=== PATIENT | male | born 1945 | race Two or more races ===

== ENCOUNTER 2021-08-08 08:21 | Outpatient (CLI) | payer MEDICARE, SELFPAY ==
[2021-08-08 08:49] LABS: Potassium 4.3 mmol/L (3.4-5.0)
[2021-08-08 08:58] LABS: Alanine Aminotransferase 32 U/L (4-50); Albumin Level 4.5 g/dL (3.5-5.1); Alkaline Phosphatase 76 U/L (38-126); Anion Gap 4 mmol/L (8-16); Aspartate Amino Transferase 35 U/L (17-59); Bilirubin,Total 0.5 mg/dL (0.2-1.3); Blood Urea Nitrogen 18 mg/dL (9-20); Calcium 9.5 mg/dL (8.4-10.2); Carbon Dioxide 27 mmol/L (22-30); Chloride 107 mmol/L (98-107); Cholesterol 182 mg/dL (0-200); Estimated Glomerular Filt Rate > 60; Glucose 116 mg/dL (65-110); HDL Direct 51 mg/dL; Sodium 138 mmol/L (137-145); Triglycerides 112 mg/dL (<150)
[2021-08-08 09:01] LABS: LDL Cholesterol Direct 95 mg/dL
[2021-08-08 09:20] LABS: Basophils Absolute Auto 0.1 K/mm3 (0.0-0.1); Eosinophils Absolute Auto 0.3 K/mm3 (0-0.3); Eosinophils Percent Auto 4.6 % (0-4.4); Hematocrit 40.4 % (42.0-52.0); Hemoglobin 13.6 g/dL (14.0-18.0); Immature Granulocyte Absolute 0.02 K/mm3 (0.00-0.031); Immature Granulocyte Percent A 0.3 % (0-0.5); Lymphocytes Absolute Auto 2.09 K/mm3 (0.9-3.2); Lymphocytes Percent Auto 34.4 % (18.3-44.2); Mean Corpuscular HGB Conc 33.7 g/dl (32-36); Mean Corpuscular Hemoglobin 30.9 pg (26-34); Mean Corpuscular Volume 91.8 fl (80-100); Monocytes Absolute Auto 0.6 K/mm3 (0.1-0.6); Monocytes Percent Auto 9.7 % (2.6-8.5); Platelet Count Result 231 k/mm3 (150-375); Red Cell Distribution Width 13.1 % (11.5-14.5); White Blood Count 6.1 K/mm3 (4.5-10.0)
[2021-08-08 09:39] LABS: Hemoglobin A1C 5.6 % (<5.7)
[2021-08-08 10:05] LABS: Thyroid Stimulating Hormone Reflex 0.256 uIU/mL (0.465-4.68)
[2021-08-08 10:32] LABS: Free T4 Free Thyroxine Reflex 1.37 ng/dL (0.78-2.19)
[2021-08-08 12:25] LABS: Total Triiodothyronine (T3) 1.09 NG/ML (0.97-1.69)
== END 2021-08-08 08:22 | disposition home or self-care (01) ==
PROVIDERS: PCP Family Medicine; Visit Provider Physician Assistant Medical
DX: E03.9 Hypothyroidism, unspecified (principal); E78.5 Hyperlipidemia, unspecified; E66.3 Overweight; I10 Essential (primary) hypertension
CPT/HCPCS: 36415; 80053; 80061; 83036; 84439; 84443; 84480; 85025

== ENCOUNTER 2021-10-03 09:18 | Outpatient (CLI) | payer MEDICARE, SELFPAY ==
[2021-10-03 11:03] LABS: Reticulocyte Hemoglobin Conten 34.4 pg (28.2-35.7); Reticulocyte Percent 1.94 % (0.7-4.3); Reticulocytes Absolute 0.08 B/L (32.2-175.7)
== END 2021-10-03 09:19 | disposition home or self-care (01) ==
PROVIDERS: PCP Family Medicine; Visit Provider Physician Assistant Medical
DX: D64.9 Anemia, unspecified (principal)
CPT/HCPCS: 36415; 82607; 82746; 85046

== ENCOUNTER 2022-09-07 08:10 | Outpatient (CLI) | payer MEDICARE, SELFPAY ==
[2022-09-07 08:55] LABS: Basophils Percent Auto 0.7 % (0.2-1.2); Eosinophils Absolute Auto 0.2 K/mm3 (0-0.3); Eosinophils Percent Auto 4.3 % (0-4.4); Hematocrit 39.6 % (42.0-52.0); Hemoglobin 13.4 g/dL (14.0-18.0); Immature Granulocyte Absolute 0.03 K/mm3 (0.00-0.031); Immature Granulocyte Percent A 0.5 % (0-0.5); Lymphocytes Absolute Auto 1.73 K/mm3 (0.9-3.2); Mean Corpuscular HGB Conc 33.8 g/dl (32-36); Mean Corpuscular Hemoglobin 30.5 pg (26-34); Mean Corpuscular Volume 90.2 fl (80-100); Mean Platelet Volume 10.1 fl (7.4-10.4); Monocytes Absolute Auto 0.7 K/mm3 (0.1-0.6); Monocytes Percent Auto 11.6 % (2.6-8.5); Neutrophils Absolute Auto 2.9 K/mm3 (1.3-6.7); Neutrophils Percent Auto 51.9 % (45.5-73.1); Platelet Count Result 207 k/mm3 (150-375); Red Blood Count 4.39 M/mm3 (4.6-6.20); Red Cell Distribution Width 13.2 % (11.5-14.5); White Blood Count 5.6 K/mm3 (4.5-10.0)
[2022-09-07 09:16] LABS: Cholesterol 169 mg/dL (0-200); HDL Direct 48 mg/dL; Triglycerides 109 mg/dL (<150)
[2022-09-07 09:27] LABS: LDL Cholesterol Direct 88 mg/dL
[2022-09-07 09:43] LABS: Prostate Specific Antigen 2.8 ng/mL (< OR = 4.0); Thyroid Stimulating Hormone 0.395 uIU/mL (0.465-4.680)
== END 2022-09-07 08:11 | disposition home or self-care (01) ==
LOC: ANHLAB 08:12
PROVIDERS: PCP Family Medicine; Visit Provider Family Medicine
DX: Z12.5 Encounter for screening for malignant neoplasm of prostate (principal); R73.9 Hyperglycemia, unspecified; I10 Essential (primary) hypertension; E78.2 Mixed hyperlipidemia; E03.9 Hypothyroidism, unspecified; E53.8 Deficiency of other specified B group vitamins
CPT/HCPCS: 36415; 80061; 82607; 84153; 84443; 85025; G0103

== ENCOUNTER 2023-10-26 07:18 | Outpatient (CLI) | payer MEDICARE, SELFPAY ==
[2023-10-26 08:11] LABS: Basophils Absolute Auto 0.1 K/mm3 (0.0-0.1); Basophils Percent Auto 1.1 % (0.2-1.2); Eosinophils Absolute Auto 0.3 K/mm3 (0-0.3); Eosinophils Percent Auto 5.3 % (0-4.4); Hematocrit 41.7 % (42.0-52.0); Hemoglobin 13.8 g/dL (14.0-18.0); Immature Granulocyte Absolute 0.02 K/mm3 (0.00-0.031); Immature Granulocyte Percent A 0.4 % (0-0.5); Lymphocytes Absolute Auto 1.68 K/mm3 (0.9-3.2); Lymphocytes Percent Auto 30.7 % (18.3-44.2); Mean Corpuscular HGB Conc 33.1 g/dl (32-36); Mean Corpuscular Hemoglobin 30.4 pg (26-34); Mean Corpuscular Volume 91.9 fl (80-100); Mean Platelet Volume 10.2 fl (7.4-10.4); Monocytes Absolute Auto 0.6 K/mm3 (0.1-0.6); Monocytes Percent Auto 10.6 % (2.6-8.5); Neutrophils Absolute Auto 2.8 K/mm3 (1.3-6.7); Neutrophils Percent Auto 51.9 % (45.5-73.1); Platelet Count Result 214 k/mm3 (150-375); Red Blood Count 4.54 M/mm3 (4.6-6.20); Red Cell Distribution Width 13.3 % (11.5-14.5); White Blood Count 5.5 K/mm3 (4.5-10.0)
[2023-10-26 08:15] LABS: Alanine Aminotransferase 32 U/L (6-50); Albumin Level 4.6 g/dL (3.5-5.1); Alkaline Phosphatase 84 U/L (38-126); Anion Gap 7 mmol/L (4-12); Aspartate Amino Transferase 32 U/L (17-59); Bilirubin,Total 0.6 mg/dL (0.2-1.3); Blood Urea Nitrogen 15 mg/dL (9-20); Calcium 9.7 mg/dL (8.4-10.2); Carbon Dioxide 26 mmol/L (22-30); Chloride 107 mmol/L (98-107); Cholesterol 171 mg/dL (0-200); Estimated Glomerular Filt Rate > 60; Glucose 114 mg/dL (65-110); HDL Direct 52 mg/dL; Potassium 4.3 mmol/L (3.4-5.0); Sodium 140 mmol/L (137-145); Triglycerides 159 mg/dL (<150)
[2023-10-26 08:26] LABS: LDL Cholesterol Direct 89 mg/dL
[2023-10-26 08:31] LABS: Hemoglobin A1C 5.6 % (<5.7)
[2023-10-26 08:44] LABS: Prostate Specific Antigen 3.5 ng/mL (< OR = 4.0)
[2023-10-26 09:20] LABS: Folic Acid 7.8 ng/mL (2.76->20)
== END 2023-10-26 07:19 | disposition home or self-care (01) ==
PROVIDERS: PCP Family Medicine
DX: D51.8 Other vitamin B12 deficiency anemias (principal); I10 Essential (primary) hypertension; Z12.5 Encounter for screening for malignant neoplasm of prostate; E78.5 Hyperlipidemia, unspecified; R73.03 Prediabetes
CPT/HCPCS: 36415; 80053; 80061; 82607; 82746; 83036; 84153; 84443; 85025; G0103

== ENCOUNTER 2023-12-01 06:34 | Day surgery (SDC) | payer MEDICARE, SELFPAY ==
[2023-11-22 15:01] VITALS: BMI 27.9
[2023-12-01 07:23] VITALS: BMI 27.2
[2023-12-01] MEDS: LACTATED RINGERS 1,000 ML 150 ML IV CONT (07:57)
--- NOTE | 2023-12-01 07:57 | WPDANESEPPF ---
Anes - Initial Pre Proc Eval Procedure: Operation Date: 12/01/23 08:30 Proposed Procedures p Esophagogastroduodenoscopy - Jorge Hancock MD s Diagnostic Colonoscopy - Jorge Hancock MD Date/Time: 12/01/23 07:57 Surgeon: Jorge Hancock MD Pre Op Diagnosis: Gerd, History of Colon Polyps Patient Data Age: 78 Gender: M Height: 1.68 m Weight: 76.65 kg Allergies Allergy/AdvReac Type Severity Reaction Status Date / Time No Known Allergies Allergy Verified 12/01/23 07:21 Home Medications Medication Instructions Recorded Confirmed Type levothyroxine 100 mcg tablet 100 mcg PO DAILY #90 tabs 04/19/23 12/01/23 Rx lisinopril 10 mg tablet 10 mg PO DAILY #90 tabs 04/19/23 12/01/23 Rx rosuvastatin 10 mg tablet 10 mg PO DAILY #90 tabs 04/19/23 12/01/23 Rx omeprazole 40 mg capsule,delayed 40 mg PO BID #180 caps 08/08/23 12/01/23 Rx release Patient hx anesthesia problems: none Family hx anesthesia problems: none Results Review: All pre-operative results and documents have been reviewed as part of the pre-operative evaluation. FOR[facility]LY [facility] Past Medical History Medical History Benign tubular adenoma of large intestine Cataract bilateral Surgical History Surgical History History of colonoscopy (~07/10/18) [place] History of ear surgery stapedectomy Social History Social History Smoking status: Never smoker Alcohol intake: current Drinks per week: 4 Substance use: never Substance use type: does not use Lack of Transportation: No Lack of Food: Never True Current Housing: I Have Housing Concerned About Future Housing: No Difficulty Paying Gas/Electric Bills: No Difficulty Paying for Meds: No Currently Unemployed: No Education: Master's Degree or Higher Difficulty w/ Childcare or Family Care: No Living arrangements: with family Anes - Eval Final PreProcedure Day of Procedure 12/01/23 07:57 Patient weight: overweight Heart: regular rate and rhythm Lungs: clear to auscultation Airway: Mallampati scale class III Neurological: alert and oriented Last oral intake: >/= 8 hours ASA classification: III Emergent: no Anesthetic plan: proceed Anesthesia type and monitoring: general GIVS and standard monitoring Results Review: All pre-operative results and documents have been reviewed as part of the pre-operative evaluation. Informed Consent: The patient's anesthetic plan and its attendant risks and benefits were discussed with the patient/family/POA. Questions were solicited and answers provided to the satisfaction of the patient/family/POA.
[2023-12-01 08:04] VITALS: BP 132/93; PULSE 77; RESP 18; TEMP 37.1; O2SAT 98
--- NOTE | 2023-12-01 08:27 | PM.HPGS ---
History of Present Illness History of Present Illness Consent: Risks, benefits, and alternatives have been discussed and questions answered. Patient agrees to proceed with procedure. Chief complaint: Gerd, History of Colon Polyps Narrative: Jason Rodgers is a 78 year old male presents for both colonoscopy and EGD. Patient has a history of adenomatous colon polyps. Previously followed by Dr. Page. He has had colon polyps on several previous occasions. Most recently 2019. Patient has does report occasional bright red blood per rectum. He denies abdominal pain at present. Desires therapy for this. He has had bleeding at least on a weekly basis. Additionally sever his with acid reflux and heartburn. Currently maintained on omeprazole 40mg p.o. daily. He continues to have breakthrough regurgitation. Review of Systems Review of Systems: All systems reviewed & are unremarkable except as noted in HPI and below PMFSH Past Medical History Medical History Benign tubular adenoma of large intestine Cataract bilateral Surgical History Surgical History History of colonoscopy (~07/10/18) [place] History of ear surgery stapedectomy Social History Social History Smoking status: Never smoker Alcohol intake: current Drinks per week: 4 Substance use: never Substance use type: does not use Lack of Transportation: No Lack of Food: Never True Current Housing: I Have Housing Concerned About Future Housing: No Difficulty Paying Gas/Electric Bills: No Difficulty Paying for Meds: No Currently Unemployed: No Education: Master's Degree or Higher Difficulty w/ Childcare or Family Care: No Living arrangements: with family Meds Home Medications and Allergies Home Medications Medication Instructions Recorded Confirmed Type levothyroxine 100 mcg tablet 100 mcg PO DAILY #90 tabs 04/19/23 12/01/23 Rx lisinopril 10 mg tablet 10 mg PO DAILY #90 tabs 04/19/23 12/01/23 Rx rosuvastatin 10 mg tablet 10 mg PO DAILY #90 tabs 04/19/23 12/01/23 Rx omeprazole 40 mg capsule,delayed 40 mg PO BID #180 caps 08/08/23 12/01/23 Rx release Allergies Allergy/AdvReac Type Severity Reaction Status Date / Time No Known Allergies Allergy Verified 12/01/23 07:21 Vital Signs Vital Signs - 24 hr 12/01/23 08:04 Temperature 98.8 F Pulse Rate 77 Respiratory Rate 18 Blood Pressure 132/93 H Pulse Oximetry 98 Oxygen Delivery Room Air Exam Narrative: Physical exam reveals patient to be alert. Vital signs stable. HEENT exam is unremarkable. Patient is anicteric. Lungs are clear to auscultation and percussion. Heart is without murmur or extra sounds. Abdomen bowel sounds are present soft nontender with no organomegaly. Digital external rectal exam normal. Assessment and Plan Assessment and plan (1) Gastroesophageal reflux disease without esophagitis: Code(s): K21.9 - Gastro-esophageal reflux disease without esophagitis Status: Acute Assessment and Plan: Patient with ongoing nocturnal regurgitation. This is occurring despite taking omeprazole 40mg p.o. once daily. Plan to continue anti-reflux measures. EGD is requested will be performed. Further recommendations may be given after endoscopy. (2) History of colon polyps: Code(s): Z86.010 - Personal history of colonic polyps Status: Acute Assessment and Plan: Patient has a history of colon polyps on several occasions in the past. Most recently 2019. Plan to continue surveillance colonoscopy at 5 year intervals. Further recommendations may be given after endoscopy. (3) Rectal bleeding: Code(s): K62.5 - Hemorrhage of anus and rectum Status: Acute Assessment and Plan: Pt reports ongoing rectal bleeding. Suspicious f
[2023-12-01 09:02] VITALS: BP 113/75; PULSE 75; RESP 14; O2SAT 96
[2023-12-01 09:12] VITALS: BP 111/79; PULSE 68; RESP 14; O2SAT 94
[2023-12-01 09:22] VITALS: BP 119/86; PULSE 56; RESP 20; O2SAT 100
--- NOTE | 2023-12-01 09:39 | WPDANESPN ---
Anes - Prog Note Post-Op Date/Time: 12/01/23 09:39 Cardiovascular status: normal Respiratory status: normal Airway patency: baseline Mental status: baseline Post-Op hydration status: normal Vital Signs: Last Vital Signs Temp 37.1 C 12/01/23 08:04 Pulse 56 L 12/01/23 09:22 Resp 20 12/01/23 09:22 BP 119/86 12/01/23 09:22 Pulse Ox 100 12/01/23 09:22 O2 Del Method Room Air 12/01/23 09:22 Pain Score (VAS): 0 I/O: Intake & Output 11/30/23 12/01/23 12/01/23 23:59 07:59 15:59 Intake Total 600 Balance 600 Patient Feedback: Patient satisfied with anesthetic care.
== END 2023-12-01 09:36 | disposition home or self-care (01) ==
PROVIDERS: Visit Provider Internal Medicine Gastroenterology
PROC: 0DJ08ZZ Inspection of Upper Intestinal Tract, Via Natural or Artificial Opening Endoscopic (ICD-10-PCS; CPT 43235; principal; 2023-12-01 08:30)
PROC: 0DJD8ZZ Inspection of Lower Intestinal Tract, Via Natural or Artificial Opening Endoscopic (ICD-10-PCS; CPT 45378; 2023-12-01 08:30)
DX: Z86.010 Personal history of colon polyps (principal); K21.9 Gastro-esophageal reflux disease without esophagitis; D12.5 Benign neoplasm of sigmoid colon; K57.30 Diverticulosis of large intestine without perforation or abscess without bleeding; K64.8 Other hemorrhoids; Q39.4 Esophageal web
CPT/HCPCS: 45385; 43450

== ENCOUNTER 2023-12-01 07:05 | Outpatient (NON) | payer MEDICARE, SELFPAY | END 2023-12-01 07:06 | disposition home or self-care (01) | LOC: ANHLAB 12-02 07:07 | PROVIDERS: Visit Provider Internal Medicine Gastroenterology | DX: Z98.890 Other specified postprocedural states (principal) | CPT/HCPCS: 88305 ==

== ENCOUNTER 2024-10-17 16:06 | Emergency (ER) | payer OTHER, SELFPAY ==
--- NOTE | 2024-10-17 16:07 | ED_ITS ---
HPI - Ear Problem General Chief complaint: Ear Stated complaint: BLOOD IN EAR Time Seen by Provider: 10/17/24 16:07 Source: patient Mode of arrival: ambulatory Limitations: no limitations History of Present Illness HPI Narrative: Jason is a 79-year-old male patient presenting to the clinic today with complaints of blood in his ear. He reports he was cleaning out his ears with a Q-tip today and noticed blood on the Q-tip. Denies any pain. Denies any changes in hearing Related Data Allergies Allergy/AdvReac Type Severity Reaction Status Date / Time No Known Allergies Allergy Verified 10/17/24 16:10 Review of Systems Review of Systems: Pertinent positives per HPI. Patient denies any fever, chills, rash, headache, visual changes, dizziness, cough, shortness of breath, chest pain, palpitations, nausea, vomiting, diarrhea, constipation, abdominal pain, or any urinary issues. PMFSH Past Medical History Medical History Benign tubular adenoma of large intestine Cataract bilateral Surgical History Surgical History History of colonoscopy (~07/10/18) Kluck[place] History of ear surgery stapedectomy Social History Social History Smoking status: Never smoker Alcohol intake: current Drinks per week: 4 Substance use: never Substance use type: does not use Lack of Transportation: No Lack of Food: Never True Current Housing: I Have Housing Concerned About Future Housing: No Difficulty Paying Gas/Electric Bills: No Difficulty Paying for Meds: No Currently Unemployed: No Education: Master's Degree or Higher Difficulty w/ Childcare or Family Care: No Living arrangements: with family Comments At the time of my signature, I reviewed and agree with the nursing past medical, surgical, social, and family history. There is no relevant family history pertinent to the patient complaint. Exam Narrative: General: Well-developed, well nourished, in no apparent distress Head: Normocephalic, atraumatic Eyes: Pupils equally round and reactive to light bilaterally, EOM intact, sclera and conjunctive clear, no discharge, lids normal Ears: TMs intact and clear, right ear canals clear, left ear canal with abrasion to the canal at 6:00, dry blood noted in the ear canal, no drainage to the right ear canal, grossly hearing normal. Nose: Nares patent, no discharge, no inflammation, no sinus tenderness. Mouth: Oral pharynx without lesions or masses, good dentition, MMM. Neck: Supple, trachea midline, no enlargement of anterior or posterior cervical nodes, no thyroid masses or goiter palpable. Cardio: Regular rate and rhythm, s1 and s2 normal, no murmur appreciated. Resp: Clear to auscultation bilaterally, no rhonchi, rales, wheezing or rubs Course Course Emergency Course: Portions of this record may have been created with voice recognition software. Level of Care: Express Care Visit Vital Signs Vital signs: Vital signs reviewed Medical Decision Making MDM Narrative Medical decision making narrative: At the time of visit patient is resting comfortably on the exam table. Patient appears to be nontoxic. Plan: I suspect patient has abrasion to the left ear canal with some dry blood. Will put him on a 3 day course of ofloxacin to cover for secondary infection. Supportive measures were discussed with the patient and they voiced understanding discharge instructions and agrees to treatment plan. Return precautions reviewed Differential Diagnosis Differential Diagnosis: Otitis media, otitis externa, eustachian tube dysfunction, cerumen impaction, upper respiratory infection, serous otitis, ear canal trauma, spontaneous rupture of the eardrum, traumatic rupture of the eardrum Discharge Plan Discharge Clinical Impression: Abrasion of ear canal Patient Disposition: Home Condition: Stable Instructions: Antibiotic Form, How to Use Ear Drops (ED) Additional Instructions: Take any prescribed medications only as directed-ofloxacin ear drops Tylenol/motrin as needed for pain Follow up with your PCP in 3-5 days if symptoms persist. Patient Language: Ghanaian Prescriptions: New ofloxacin 0.3 % drops 5 drp otic (ear) BID 3 Days Qty: 5 0RF No Action levothyroxine 100 mcg tablet 100 mcg PO DAILY Qty: 90 0RF Rx Instructions: NEEDS APPOINTMENT FOR FURTHER REFILLS-LAST REFILL UNTIL SEEN rosuvastatin 10 mg tablet 10 mg PO DAILY Qty: 90 0RF Rx Instructions: NEEDS APPOINTMENT FOR FURTHER REFILLS-LAST REFILL UNTIL SEEN lisinopril 10 mg tablet 10 mg PO DAILY Qty: 90 0RF Rx Instructions: NEEDS APPOINTMENT FOR FURTHER REFILLS-LAST REFILL UNTIL SEEN omeprazole 40 mg capsule,delayed release(DR/EC) 40 mg PO BID Qty: 180 0RF Rx Instructions: LAST REFILL UNTIL SEEN-NEEDS APPOINTMENT Follow-up/Referrals: UNKNOWN,DOCTOR [Non-Staff] - Time of Disposition: 16:19 Quality NIHSS Nursing Documentation ED NIHSS nursing documentation: reviewed/agree
[2024-10-17 16:15] VITALS: BP 132/88; PULSE 75; RESP 16; TEMP 36.8; O2SAT 98
== END 2024-10-17 16:21 | disposition home or self-care (01) ==
PROVIDERS: Emergency Provider Nurse Practitioner Family
DX: S00.412A Abrasion of left ear, initial encounter (principal); X58.XXXA Exposure to other specified factors, initial encounter; Z86.0100 Personal history of colon polyps, unspecified
CPT/HCPCS: 99213; G0463

== ENCOUNTER 2024-10-24 07:08 | Outpatient (CLI) | payer OTHER, SELFPAY ==
--- OUTSIDE RECORDS SUMMARY | 2024-10-24 07:16 | XMS_ITS | Clinical Summary ---
Author Organization [facility] Address [address] [place] [id number] Care Team Providers Care Respiratory Care Faculty Name Role Phone Unavailable Primary Care Provider Unavailabl e Social History Tobacco Use Types Packs/Day Years Used Date Smoking Tobacco: Never Assessed Sex and Gender Information Value Date Recorded Sex Assigned at Not on file Legal Sex Male 9:16 PM CDT Gender Identity Not on file Sexual Orientation Not on file Plan of Treatment Health Maintenance Due Date Last Done Comments Hepatitis C 1963 DTaP, Tdap and Td Vaccines ( 1 - Tdap) 1966 Pneumococcal Vaccine: 50+ Ye ars (1 of 1 - PCV) 1997 Zoster Vaccines (1 of 2) 1997 RSV Immunization or 60+ Years (1 - 1-dose 75+ series) 2022 COVID-19 Vaccine (2023-2 5 season) 2024 Meningococcal B Vaccine Aged Out No l onger eligible based on patient's age to complete this topic Meningococcal Vaccine Aged Out No bry regine eligible based on patient's age to complete this topic RSV Immunizations Under 20 Months Aged Out No longer eligible based on patient's age to complete this topic
--- OUTSIDE RECORDS SUMMARY | 2024-10-24 07:16 | XMS_ITS | Clinical Summary ---
Author Organization [facility] Address [address], [address] [address] Phone Care Team Providers Care Advertising Traffic Manager Name Role Phone Santos Church MD Primary Care Provider [phone] Medications omeprazole (PRILOSEC) 40 MG CAPSULE DELAYED RELEASE Take 1 Cap by mouth daily. 30 Cap 6 06/29/2019 Active Social History Tobacco Use Types Packs/Day Years Used Date Smoking Tobacco: Never Assessed Sex and Gender Information Value Date Recorded Sex Assigned at Not on file Legal Sex Male 8:42 PM CDT Gender Identity Not on file Sexual Orientation Not on file Plan of Treatment Health Maintenance Due Date Last Done Comments Hepatitis C Virus (HCV) Screening 1945 TdaP Immunization 1945 Pneumococcal Immunization (5 0+ years) (1 of 1 - PCV) 1997 Zoster Immunization (1 of 2) 1997 Respiratory Syncytial Virus (RSV) Immunization (Adult) (1 - 1-dose 75+ series) 2022 Influenza Immunization (#1) 2024 SARS-COV-2 Immunization ( season) 2024 Colonoscopy High Risk Discontinued 07/10/2018 Colonoscopy Discontinued 07/10/2018 Colorectal Cancer Screening Discontinued Cologuard Discontinued Hepatitis B Immunization Aged Out No longer eligible based on patient's age to complete this topic Immunochemical Fecal Occult Blood Discontinued Meningococcal Immunization (ACWY) Aged Out No longer eligible based on patient's age to complete this topic Rotavirus Immunization Aged Out No lo nger eligible based on patient's age to complete this topic Procedures Procedure Name Priority Date/Time Associated Diagnosis Comments COLONOSCOPY Routine 07/10/2018 from Last 3 Months or Most Recently Relevant to Health Maintenance Results * COLONOSCOPY (07/10/2018) Jorge Page DO PROCEDURE/MINOR SURGICAL ORDERA BLES Final Result from Last 3 Months or Most Recently Relevant to Health Maintenance [place] [address] [place] [address] Care Teams Advertising Traffic Manager Relationship Specialty Start Date End Date Santos Church MD [address] [place] [address] [address] [place] [address] PCP - General Family Medicine 05/31/18
--- OUTSIDE RECORDS SUMMARY | 2024-10-24 07:17 | XMS_ITS | Clinical Summary ---
Author Organization [facility] [address] Address [address] [place] [address] Care Team Providers Care Optometry Assistant Name Role Phone Vince Rodgers MD Primary Care Provider [phone] Allergies No known active allergies Medications levothyroxine 100 mcg tablet Take 1 Tablet (100 mcg) by mouth daily. 90 Tablet 3 08/09/2024 Active lisinopriL (PRINIVIL) 10 mg tablet Take 1 Tablet (10 mg) by mouth daily. 90 Tablet 3 08/09/2024 Active omeprazole (PriLOSEC) 40 mg Capsule, Delayed Release(E.C.) Take 1 Capsule (40 mg) by mouth 1 time daily as needed (GERD). 90 Capsule 3 08/09/2024 Active rosuvastatin (CRESTOR) 10 mg tablet Take 1 Tablet (10 mg) by mouth daily. 90 Tablet 3 08/09/2024 Active Active Problems Problem Noted Date Diagnosed Date Prediabetes 10/24/2023 Plantar fasciitis, bilateral 10/05/2022 GERD without esophagitis 10/05/2022 Acquired hypothyroidism 10/05/2022 Dyslipidemia 10/05/2022 Essential hypertension 10/05/2022 Absolute anemia 10/05/2022 Encounters Date Type Department Care Team Description 10/22/2024 11:00 AM CDT Office Visit [facility] Primary Care - [address] [place] [address] Vince Rodgers MD Annual physical exam (Primary Dx); Essential hypertension; Dyslipidemia; Acquired hypothyroidism; GERD without esophagitis; Other vitamin B12 deficiency anemia; Prediabetes; Prostate cancer screening 09/12/2024 External Device Data [facility] ABSTRACTION Provider, Abstract 09/01/2024 External Device Data [facility]STRA[facility] Provider, Abstract 08/31/2024 External Device Data [place]STRACTION Provider, Abstract 08/15/2024 External Device Data [facility]STRACTION Provider, Abstract 08/08/2024 [facility] Primary Care - [address] [place] [phone] Vince Rodgers MD 07/31/2024 External Device Data [place]STRACTION Provider, Abstract from Last 3 Months Immunizations Immunization Administration Dates Next Due (COMIR[place]Y)(12 YR UP) COVID- 19 VACCINE, MRNA, SPIKE PROTEIN, LNP, CLARA(PF) 30 MCG/0.3 ML IM SUSP 05/16/2023 ([place])(12 YR UP) COVID-19 VACCINE - EMERGENCY USE AUTHORIZATION, MRNA, [id number](PF) 30 MCG/0.3 ML IM SUSP 08/06/2020,07/15/2020 Influenza Seasonal Unspecified Formulation IM Family History Relation Name Status Comments Father Maternal Grandfather Maternal Grandmother Mother Paternal Grandfather Paternal Grandmother Social History Tobacco Use Types Packs/Day Years Used Date Smoking Tobacco: Never Passive Smoke Exposure: Never Smokeless Tobacco: Never Tobacco Cessation:Counseling Given: No Alcohol Use Standard Drinks/Week Comments Yes 3 (1 standard drink = 0.6 oz pur e alcohol) Daily Sex and Gender Information Value Date Recorded Sex Assigned at Not on file Legal Sex Male 9:52 PM CDT Gender Identity Not on file Sexual Orientation Not on file Last Filed Vital Signs Vital Sign Reading Time Taken Comments Blood Pressure 128/60 10/22/2024 11:23 AM CDT Pulse 77 10/22/2024 11:02 AM CDT Temperature 36.8 C (98.2 F) 10/22/2024 11:02 AM CDT Respiratory Rate 18 10/05/2022 3:52 PM CDT Oxygen Saturation 97% 10/22/2024 11:02 AM CDT Inhaled Oxygen Concentration - - Weight 78.5 kg (173 lb) 10/22/2024 11:02 AM CDT Height 167.6 cm (5' 6 ) 10/22/2024 11:02 AM CDT Body Mass Index 27.92 10/22/2024 11:02 AM CDT Plan of Treatment Upcoming Encounters Date Type Department Care Team (Late st Contact Info) Description 10/29/2024 12:00 PM CDT Office Visit [facility] Primary Care - [address] [facility] [address] [facility] [address] [place] [phone] Vince Rodgers MD [address] [facility] [address] [place] [address] 10/24/2025 11:00 AM CDT Office Visit [facility] - [address] [facility] [address] [facility] [address] [place] [address] Vince Rodgers MD [address] [facility] [address] [place] [address] Health Maintenance Due Date Last Done Comments DTAP/TDAP/TD VACCINES (1 - Tdap) 1966 PNEUMOCOCCAL VACCINE 50+ YEA RS (1 of 1 - PCV) 1997 ZOSTER VACCINE (1 of 2) 1997 RSV VACCINE (60+ or ) (1 - 1-dose 75+ series) 2022 INFLUENZA VACCINE (#1) 2024 05/07/2023 COVID-19 Vaccine ( season) 2024 05/16/2023, 08/06/2020, 07/15/2020 COLORECTAL SCREENING 11/30/2028 12/01/2023, 07/10/19 19 Procedures Procedure Name Priority Date/Time Associated Diagnosis Comments ENDOSCOPY, COLON, SCREENING Routine 12/01/2023 12:11 PM CDT from Last 3 Months or Most Recently Relevant to Health Maintenance Results * ENDOSCOPY, COLON, SCREENING (12/01/2023 12:11 PM CDT) us Abstract Provider GI PROCEDURE ORDERABLES Edited Result - Final [facility] - [address] [address] CLIA# [id number] [facility] [place] [address] from Last 3 Months or Most Recently Relevant to Health Maintenance Insurance [facility] PPO MCR Care Teams Optometry Assistant Relationship Specialty Start Date End Date Vince Rodgers MD [address] [place] [phone] PCP - General Internal Medicine 10/05/22
[2024-10-24 07:58] LABS: Basophils Absolute Auto 0.1 K/mm3 (0.0-0.1); Basophils Percent Auto 0.9 % (0.2-1.2); Eosinophils Absolute Auto 0.3 K/mm3 (0-0.3); Eosinophils Percent Auto 4.9 % (0-4.4); Hematocrit 40.8 % (42.0-52.0); Hemoglobin 13.2 g/dL (14.0-18.0); Immature Granulocyte Absolute 0.04 K/mm3 (0.00-0.031); Immature Granulocyte Percent A 0.7 % (0-0.5); Lymphocytes Absolute Auto 1.86 K/mm3 (0.9-3.2); Lymphocytes Percent Auto 32.5 % (18.3-44.2); Mean Corpuscular HGB Conc 32.4 g/dl (32-36); Mean Corpuscular Hemoglobin 30.1 pg (26-34); Mean Corpuscular Volume 92.9 fl (80-100); Monocytes Absolute Auto 0.6 K/mm3 (0.1-0.6); Monocytes Percent Auto 10.3 % (2.6-8.5); Neutrophils Absolute Auto 2.9 K/mm3 (1.3-6.7); Neutrophils Percent Auto 50.7 % (45.5-73.1); Platelet Count Result 205 k/mm3 (150-375); Red Blood Count 4.39 M/mm3 (4.6-6.20); Red Cell Distribution Width 13.3 % (11.5-14.5); White Blood Count 5.7 K/mm3 (4.5-10.0)
[2024-10-24 08:05] LABS: Alanine Aminotransferase 33 U/L (6-50); Albumin Level 4.2 g/dL (3.5-5.1); Alkaline Phosphatase 72 U/L (38-126); Anion Gap 7 mmol/L (4-12); Aspartate Amino Transferase 29 U/L (17-59); Bilirubin,Total 0.5 mg/dL (0.2-1.3); Blood Urea Nitrogen 15 mg/dL (9-20); Carbon Dioxide 28 mmol/L (22-30); Chloride 104 mmol/L (98-107); Cholesterol 174 mg/dL (0-200); Estimated Glomerular Filt Rate > 60; Glucose 110 mg/dL (65-110); HDL Direct 46 mg/dL; Potassium 4.2 mmol/L (3.4-5.0); Sodium 139 mmol/L (137-145); Triglycerides 164 mg/dL (<150)
[2024-10-24 08:16] LABS: LDL Cholesterol Direct 84 mg/dL
[2024-10-24 08:35] LABS: Prostate Specific Antigen 3.4 ng/mL (< OR = 4.0)
[2024-10-24 08:48] LABS: Hemoglobin A1C 5.8 % (<5.7)
[2024-10-24 09:11] LABS: Folic Acid 6.7 ng/mL (2.76->20)
== END 2024-10-24 07:09 | disposition home or self-care (01) ==
DX: Z12.5 Encounter for screening for malignant neoplasm of prostate (principal); R73.03 Prediabetes; I10 Essential (primary) hypertension; E78.5 Hyperlipidemia, unspecified; E03.9 Hypothyroidism, unspecified
CPT/HCPCS: 36415; 80053; 80061; 82607; 82746; 83036; 84153; 84443; 85025; G0103